=== PATIENT | female | born 2000 | race Caucasian/White ===

== ENCOUNTER 2018-09-01 06:51 | Day surgery (SDC) | payer OTHER ==
[2018-09-01] MEDS ORDERED: ONDANSETRON 4 MG INJ (07:00)
[2018-09-01] MEDS ORDERED: METOCLOPRAMIDE 10 MG INJ (07:00)
[2018-09-01] MEDS: LACTATED RINGER'S 1,000 ML IV (08:11)
[2018-09-01] MEDS ORDERED: SUCCINYLCHOLINE CHLORIDE 100 MG/5 ML SYG IV (09:07)
[2018-09-01] MEDS ORDERED: PROPOFOL 20 ML (09:07)
[2018-09-01] MEDS ORDERED: ROCURONIUM 50 MG INJ (09:07)
[2018-09-01] MEDS ORDERED: LIDOCAINE 2% (SDV) 5 ML INJ (09:07)
[2018-09-01] MEDS ORDERED: OXYCODONE/ACETAMINOPHEN (5/325) TAB PO ×2 (10:00)
[2018-09-01] MEDS ORDERED: MEPERIDINE 25 MG INJ IV (10:00)
[2018-09-01] MEDS ORDERED: METOCLOPRAMIDE 10 MG INJ IV (10:00)
[2018-09-01] MEDS ORDERED: FENTAnyl 50 MCG/ML VIAL IV ×3 (10:00)
[2018-09-01] MEDS ORDERED: DIPHENHYDRAMINE 50 MG INJ IV (10:00)
[2018-09-01] MEDS ORDERED: HYDROmorphONE 1 MG/5 ML IV SYRINGE IV (10:00)
[2018-09-01] MEDS ORDERED: MIDAZOLAM 1 MG/ML 2 ML INJ IV (10:00)
[2018-09-01] MEDS: ONDANSETRON 4 MG INJ IV (10:15)
[2018-09-01] MEDS: HYDROmorphONE 1 MG/5 ML IV SYRINGE IV ×3 (10:16→10:34)
== END 2018-09-01 11:50 | disposition home or self-care (01) ==
LOC: SDS 06:51
DX: J35.01 Chronic tonsillitis (principal)
CPT/HCPCS: 42821; 84703; 88304